=== PATIENT | female | born 1985 | race Caucasian/White ===

== ENCOUNTER 2017-10-01 07:51 | Outpatient (CLI) | payer OTHER ==
[~2017-10-01] VITALS: Ht 165.1 cm; Wt 68.0 kg
[~2017-10-01 07:51] MED LIST: DOCU-131 PO; HYDR-3240 PO; IBUP-1222 PO; OXYC-302 PO
[2017-10-01 08:56] VITALS: BP 131/76
[2017-10-01] MEDS ORDERED: LACTATED RINGERS 1,000 ML IV SCH (09:09)
== END 2017-10-01 09:48 | disposition home or self-care (01) ==
LOC: LDOP 07:51
PROVIDERS: ATTEND Obstetrics & Gynecology
DX: O26.893 Other specified pregnancy related conditions, third trimester (principal); R51 Headache; Z3A.00 Weeks of gestation of pregnancy not specified
CPT/HCPCS: 62273; 96360; J7120

== ENCOUNTER 2018-06-06 14:35 | Outpatient (CLI) | payer OTHER ==
[2018-06-06] MEDS ORDERED: PRENATAL PO (15:07)
== END 2018-06-13 09:24 | disposition home or self-care (01) ==
LOC: STAR 14:35
PROVIDERS: ATTEND Surgery
DX: Z02.9 Encounter for administrative examinations, unspecified (principal)